=== PATIENT | male | born 1955 | race Caucasian/White ===

== ENCOUNTER 2017-11-12 22:02 | Emergency (ER) | payer OTHER ==
[~2017-11-12] VITALS: Ht 177.8 cm; Wt 119.3 kg
[~2017-11-12 22:02] MED LIST: OMEP40CA5 PO
[2017-11-12 22:40] VITALS: BP 174/107
[2017-11-12] MEDS ORDERED: TRAM50TA PO (23:10)
--- NOTE | 2017-11-12 23:10 | PHYS DOC ---
Past Medical History Past Medical History: Hypertension, Stroke Additional Past Medical Histor: sciatica Past Surgical History: Other Additional Past Surgical Histo: knee Alcohol Use: Heavy Additional Information: 2-3 beers daily "sometimes more" Drug Use: None Adult General Chief Complaint Chief Complaint: BACK PAIN - NO INJURY [facility] HPI Patient is a 61 year old male who presents with sciatica nerve pain since Wednesday. Patient states he went to his primary care doctor on Wednesday and was given a prescription for hydrocodone and prednisone. Patient states that the medication is not working. Patient states the pain 9 out of 10 burning and radiating from his left hip down to the front of his left leg to his knee. States he has no known drug allergies. Patient states he takes simvastatin, lisinopril, Wellbutrin. States he is currently not been taking his medications due to other things going on in life. Review of Systems Review of Systems Constitutional: Denies fever or chills [] Eyes: Denies change in visual acuity, redness, or eye pain [] HENT: Denies nasal congestion or sore throat [] Respiratory: Denies cough or shortness of breath [] Cardiovascular: No additional information not addressed in HPI [] GI: Denies abdominal pain, nausea, vomiting, bloody stools or diarrhea [] : Denies dysuria or hematuria [] Musculoskeletal: Denies back pain or Left hip joint pain that radiates down his left leg. [] Integument: Denies rash or skin lesions [] Neurologic: Denies headache, focal weakness or sensory changes [] All other systems were reviewed and found to be within normal limits, except as documented in this note. Allergies Allergies Allergies Coded Allergies Type Severity Reaction Last Updated Verified No Known Drug Allergies 07/20/15 No Physical Exam Physical Exam Constitutional: Well developed, well nourished, no acute distress, non-toxic appearance. [] HENT: Normocephalic, atraumatic, bilateral external ears normal, oropharynx moist, no oral exudates, nose normal. [] Eyes: PERRLA, EOMI, conjunctiva normal, no discharge. [] Neck: Normal range of motion, no tenderness, supple, no stridor. [] Cardiovascular:Heart rate regular rhythm, no murmur [] Lungs & Thorax: Bilateral breath sounds clear to auscultation [] Abdomen: Bowel sounds normal, soft, no tenderness, no masses, no pulsatile masses. [] Skin: Warm, dry, no erythema, no rash. [] Back: No tenderness, no CVA tenderness. [] Extremities: No tenderness, no cyanosis, no clubbing, ROM intact, no edema. Left hip pain that is sharp and burning radiating down his left leg to the knee. [] Neurologic: Alert and oriented X 3, normal motor function, normal sensory function, no focal deficits noted. [] Psychologic: Affect normal, judgement normal, mood normal. [] Current Patient Data Vital Signs Vital Signs Date Time Temp Pulse Resp B/P (MAP) Pulse Ox O2 Delivery O2 Flow Rate FiO2 11/12/17 22:40 98.2 80 20 174/107 (129) 95 Room Air 98.2 EKG EKG [] Radiology/Procedures Radiology/Procedures [] Course & Med Decision Making Course & Med Decision Making Upon examination patient's pain can be reproduced upon straight leg extension and with movement of the leg patient getting up from the bed. Patient states is very hard to walk because of the pain. There is no edema and the patient's extremities. Pedal pulses are present in lateral lower extremities. Patient denies any numbness or tingling, pallor or coolness of the leg. Skin is pink warm and dry. Patient is neurologically intact. Patient is currently still taking prednisone given by his doctor patient is given a prescription for tramadol for pain. To follow-up with his primary care physician. [] Dragon Disclaimer Dragon Disclaimer This electronic medical record was generated, in whole or in part, using a voice recognition dictation system. Departure Departure Impression: Primary Impression: Sciatic leg pain Additional Impression: Sciatic nerve pain Disposition: HOME, SELF-CARE Condition: STABLE Referrals: MARS MOYER MD (PCP) Patient Instructions: Sciatica Additional Instructions: Take medications as prescribed. Follow up with your doctor on Wednesday. Scripts Tramadol Hcl (TRAMADOL HCL) 50 Mg Tablet 50 MG PO Q6HRS PRN for PAIN, #10 TAB Prov: JENNA CARNES APRN 11/12/17 Problem Qualifiers Additional Impression: Sciatic nerve pain Laterality: left Qualified Codes: M54.32 - Sciatica, left side JENNA CARNES [employer]PERATIONS ANALYST Nov 12, 2017 23:10
== END 2017-11-12 23:42 | disposition home or self-care (01) ==
LOC: ER 22:02
DX: M54.32 Sciatica, left side (principal); I10 Essential (primary) hypertension; Z86.73 Personal history of transient ischemic attack (TIA), and cerebral infarction without residual deficits; F10.20 Alcohol dependence, uncomplicated; Y90.9 Presence of alcohol in blood, level not specified
CPT/HCPCS: 99283

== ENCOUNTER → 2021-04-01 | Outpatient (CLI) | payer OTHER ==
[~2021-04-01] MED LIST changes: -OMEP40CA5 PO; +OMEP40CA7 PO; +TRAM50TA PO
--- NOTE | 2021-04-01 12:31 | KCIC ---
EXAM: CT coronary artery calcium screening; radiologist over read. HISTORY: Hyperlipidemia. Family history of coronary artery disease. TECHNIQUE: Computed tomographic images of the chest were obtained without contrast. Multiplanar refor matting was performed. *One or more of the following individualized dose reduction techniques were utilized for this examina tion: 1. Automated exposure control. 2. Adjustment of the mA and/or kV according to patient size. 3. Use of iterative reconstruction technique. COMPARISON: None. FINDINGS: There is calcified atherosclerotic plaque involving the coronary arteries. The heart is nor mal in size. The aorta is normal in caliber. There is no lymphadenopathy. There is a calcified granul velvet within the lateral left lower lobe. There is lingular and left lower lobe linear atelectasis or s carring. There is no acute finding involving the upper abdomen or osseous structures. Coronary artery calcium score: Left main artery - 54.6 Left anterior descending - 625.3 Left circumflex - 7.1 Right coronary artery - 1079.6 TOTAL = 1766.7 IMPRESSION: 1. Coronary artery calcium score 1766.7. This is consistent with a large amount of calcified atherosc lerotic plaque. There is high cardiac risk. 2. No acute thoracic finding. Electronically signed by: Renea Hernandez MD (04/01/2021 12:29 PM) [id number]
== END ==
LOC: KCIC CT 09:18
PROVIDERS: ATTEND Nurse Practitioner Family
DX: I25.10 Atherosclerotic heart disease of native coronary artery without angina pectoris (principal); J84.10 Pulmonary fibrosis, unspecified; E78.5 Hyperlipidemia, unspecified; Z82.49 Family history of ischemic heart disease and other diseases of the circulatory system
CPT/HCPCS: 75571